=== PATIENT | female | born 1990 | race African-American/Black ===

== ENCOUNTER 2019-09-10 07:33 | Inpatient (IN) | payer MEDICAID ==
[~2019-09-10] VITALS: Ht 152.4 cm; Wt 54.0 kg
[2019-09-10 09:47] LABS: BASOPHILS % 0.5 % (0.0-2.0); EOSINOPHILS % 0.1 % (0.0-5.0); HEMATOCRIT. 38.7 % (36.0-48.0); HEMOGLOBIN. 13.1 g/dL (12.0-16.0); MEAN CORPUSCULAR HEMOGLOBIN 29.5 pg (28.0-32.0); MEAN CORPUSCULAR VOLUME 87.3 fL (81.0-99.0); MEAN PLATELET VOLUME 9.4 fl (7.4-10.4); MONOCYTES % 2.7 % (2.0-8.0); NEUTROPHILS % 85.7 % (40.0-76.0); PLATELET 235 x1000/uL (130-400); RED BLOOD CELL COUNT 4.43 mill/uL (4.2-5.4); RED CELL DISTRIBUTION WIDTH 14.2 % (11.6-14.6)
[2019-09-10 09:49] LABS: CHLORIDE 106 mEq/L (98-107)
[2019-09-10] MEDS ORDERED: SODIUM CHLORIDE 0.9% 1,000 ML IV ONE (11:37)
[2019-09-10] MEDS ORDERED: ACETAMINOPHEN 325MG TABLET PO ONE (12:00)
[2019-09-10 12:02] LABS: HCG SCREEN NEGATIVE
[2019-09-10] MEDS: SODIUM CHLORIDE 0.9% 1,000 ML IV SCH (14:04)
[2019-09-10] MEDS ORDERED: ONDANSETRON HCL 4MG/2ML INJ IV PRN (14:15)
[2019-09-10] MEDS ORDERED: IPRATROPIUM/ALBUTEROL 0.5-3(2.5)MG/3ML NEB HHN PRN (14:15)
[2019-09-10] MEDS ORDERED: DIPHENHYDRAMINE 50MG/ML VIAL IV PRN (14:15)
[2019-09-10 15:30] LABS: PHOSPHORUS 4.3 mg/dL (2.5-4.9)
[2019-09-10] MEDS: ACETAMINOPHEN 325MG TABLET PO PRN (20:44)
[2019-09-10 20:58] LABS: CLARITY URINE CLEAR (CLEAR); COLOR URINE YELLOW (YELLOW); KETONES URINE 2+ (NEGATIVE); LEUKOCYTE ESTERASE URINE NEGATIVE (NEGATIVE); NITRITE URINE NEGATIVE (NEGATIVE); OCCULT BLOOD URINE NEGATIVE (NEGATIVE); PH URINE 5.5 (4.5-8.0); PROTEIN URINE NEGATIVE (NEGATIVE); SPECIFIC GRAVITY URINE 1.013 (1.005-1.030); UROBILINOGEN URINE 0.2 E.U./dL (0.2-1.0)
[2019-09-10 22:00] VITALS: BP 95/50
[2019-09-10 22:20] VITALS: BP 95/39
[2019-09-11] VITALS: BP 92/53
[2019-09-11] MEDS: SODIUM CHLORIDE 0.9% 1,000 ML IV SCH ×2 (03:37→22:26)
[2019-09-11 04:00] VITALS: BP 96/59
[2019-09-11 09:02] LABS: CHLORIDE 112 mEq/L (98-107)
[2019-09-11 09:12] LABS: LDL CHOLESTEROL 73 mg/dL (5-100)
[2019-09-11 09:14] LABS: BASOPHILS % 0.4 % (0.0-2.0); EOSINOPHILS % 0.4 % (0.0-5.0); HDL CHOLESTEROL 76 mg/dL (40-59); HEMATOCRIT. 34.6 % (36.0-48.0); HEMOGLOBIN. 11.8 g/dL (12.0-16.0); LYMPHOCYTES % 18.4 % (20.0-50.0); MEAN CORPUSCULAR HEMOGLOBIN 29.7 pg (28.0-32.0); MEAN PLATELET VOLUME 9.9 fl (7.4-10.4); NEUTROPHILS % 75.8 % (40.0-76.0); PLATELET 203 x1000/uL (130-400); RED BLOOD CELL COUNT 3.98 mill/uL (4.2-5.4); RED CELL DISTRIBUTION WIDTH 13.7 % (11.6-14.6)
[2019-09-11 12:00] VITALS: BP 102/54
[2019-09-11] MEDS ORDERED: PNEUMOCOCCAL 23-VAL P-SAC VAC 0.5 ML IM ONE (12:00)
[2019-09-11] MEDS ORDERED: MECLIZINE 12.5MG TABLET PO PRN (15:30)
[2019-09-11 16:06] VITALS: BP 101/59
[2019-09-11] MEDS: ACETAMINOPHEN 325MG TABLET PO PRN (16:14)
[2019-09-11 20:00] VITALS: BP 90/50
[2019-09-12] VITALS: BP_SYST 106; BP_SYST 83; BP_SYST 84; BP_DIAS 36; BP_DIAS 44; BP_DIAS 63
[2019-09-12 04:00] VITALS: BP_SYST 89; BP_SYST 91; BP_DIAS 46; BP_DIAS 49; BP_DIAS 51
[2019-09-12 08:00] VITALS: BP 95/50
[2019-09-12 09:09] LABS: BASOPHILS % 0.4 % (0.0-2.0); EOSINOPHILS % 0.8 % (0.0-5.0); HEMATOCRIT. 37.5 % (36.0-48.0); HEMOGLOBIN. 12.5 g/dL (12.0-16.0); LYMPHOCYTES % 25.3 % (20.0-50.0); MEAN CORPUSCULAR HEMOGLOBIN 29.5 pg (28.0-32.0); MEAN CORPUSCULAR VOLUME 88.3 fL (81.0-99.0); MEAN PLATELET VOLUME 10.1 fl (7.4-10.4); MONOCYTES % 4.8 % (2.0-8.0); NEUTROPHILS % 68.7 % (40.0-76.0); PLATELET 227 x1000/uL (130-400); RED BLOOD CELL COUNT 4.25 mill/uL (4.2-5.4); RED CELL DISTRIBUTION WIDTH 13.8 % (11.6-14.6)
[2019-09-12 09:28] LABS: CHLORIDE 109 mEq/L (98-107)
[2019-09-12] MEDS ORDERED: SODIUM CHLORIDE 0.9% 500 ML IV NR (10:30)
[2019-09-12 11:51] VITALS: BP_SYST 85; BP_SYST 89; BP_SYST 90; BP_DIAS 42; BP_DIAS 50; BP_DIAS 54
[2019-09-12] MEDS: SODIUM CHLORIDE 0.9% 1,000 ML IV SCH (12:00)
[2019-09-12] MEDS ORDERED: IBUP-2029 MT (12:44)
[2019-09-12 15:06] VITALS: BP 104/59
[2019-09-12 16:19] VITALS: BP 104/58
== END 2019-09-12 18:00 | disposition home or self-care (01) | DRG 204 ==
LOC: ER 07:33 → 5WST 12:51 → EDBEDREQ 13:08 → ENRESERV 20:51
PROVIDERS: ADMIT Internal Medicine; ATTEND Internal Medicine
DX: R55 Syncope and collapse (principal); I95.9 Hypotension, unspecified; M79.605 Pain in left leg; W19.XXXA Unspecified fall, initial encounter
CPT/HCPCS: 36415; 71045; 73630; 80048; 80053; 80061; 81003; 83735; 83880; 84100; 84443; 84484; 84703; 85025; 93005; 93970; 96360; 97162; 99285; J7030; J7040; J8597